=== PATIENT | male | born 1965 | race Caucasian/White ===

== ENCOUNTER 2019-11-14 09:00 | Day surgery (SDC) | payer MEDICARE ==
[2019-11-13 14:08] VITALS: BMI 28.5
[2019-11-14] MEDS ORDERED: Ketorolac Tromethamine 30 MG/ML VIAL ONE (09:29)
[2019-11-14] MEDS ORDERED: Acetaminophen 500 MG TAB ONE (09:29)
[2019-11-14 09:43] LABS: #Eosinphils 0.2 thou/uL (0.0-0.7); #Lymphocytes 2.9 thou/uL (1.20-3.40); #Neutrophils 10.7 thou/uL (1.40-6.50); %Basophils 0.3 % (0.0-1.0); %Eosinophils 1.3 % (0.0-10.0); %Lymphocytes 19.4 % (21.0-51.0); %Monocytes 6.7 % (0.0-10.0); %Neutrophils 72.3 % (42.0-75.0); Hemoglobin 14.1 g/dL (14.0-18.0); Mean Corpuscular HGB CONC 32.7 g/dL (32.0-36.0); Mean Corpuscular Hemoglobin 30.5 pg (27.0-31.0); Mean Corpuscular Volume 93.3 fL (78.0-98.0); Mean Platelet Volume 10.4 fL (7.4-10.4); Platelet Count 208 thou/uL (130-400); RBC Distribution Width 12.5 % (11.5-14.5); Red Blood Cell (RBC) Count 4.62 mill/uL (4.70-6.10); White Blood Cell (WBC) Count 14.7 thou/uL (4.8-10.8)
[2019-11-14 09:53] LABS: Anion Gap 15 mmol/L (10-20); BUN (Urea Nitrogen) 14 mg/dL (8.4-25.7); Calc. Creatinine Clearance 80 mL/min (70-130); Calcium 7.6 mg/dL (7.8-10.44); Carbon Dioxide 31 mmol/L (22-29); Chloride 97 mmol/L (98-107); Estimated GFR-MDRD 64; Glucose 103 mg/dL (70-105); Potassium 4.1 mmol/L (3.5-5.1); Sodium 139 mmol/L (136-145)
[2019-11-14] MEDS ORDERED: PROPOFOL 200 MG/20 ML VIAL ONE (10:03)
[2019-11-14] MEDS ORDERED: Dexamethasone 20 MG/5 ML VIAL ONE (10:03)
[2019-11-14] MEDS ORDERED: Rocuronium Bromide 10 MG/ML (10ML VIAL) ONE (10:03)
[2019-11-14] MEDS ORDERED: EPHEDRINE 25 MG/5 ML SYRINGE ONE (10:03)
[2019-11-14] MEDS ORDERED: Glycopyrrolate 0.2 MG/ML 5 ML SYRINGE ONE (10:03)
[2019-11-14] MEDS ORDERED: PHENYLEPHRINE-NS 100 MCG/ML 10 ML SYRINGE ONE (10:03)
[2019-11-14] MEDS ORDERED: Ondansetron PF 4 MG/2 ML Vial ONE (10:03)
[2019-11-14] MEDS ORDERED: Lidocaine 1% PF 5 ML VIAL ONE (10:03)
[2019-11-14] MEDS ORDERED: Bupivacaine PF 0.5% 30 ML VIAL ONE (12:34)
[2019-11-14] MEDS ORDERED: Lidocaine 1% w/Epinephrine 1:100K 20 ML VIAL ONE (12:34)
[2019-11-14] MEDS ORDERED: Bupivacaine 0.25% HCL 30 ML VIAL ONE (12:34)
[2019-11-14] MEDS ORDERED: Fentanyl 100 MCG/2 ML VIAL ONE (12:35)
[2019-11-14] MEDS ORDERED: Midazolam HCl 2 mg/2 ml Vial ONE (12:35)
[2019-11-14] MEDS ORDERED: Lidocaine 2% Jelly 5 ML TUBE ONE (12:35)
[2019-11-14] MEDS ORDERED: HYDROmorphone 0.5 MG/0.5 ML SYRINGE ONE (12:35)
--- NOTE | 2019-11-14 15:20 | EKG ---
Test Reason : PREOP Blood Pressure : / mmHG Vent. Rate : 093 BPM Atrial Rate : 093 BPM P-R Int : 136 ms QRS Dur : 096 ms QT Int : 380 ms P-R-T Axes : 023 075 018 degrees QTc Int : 472 ms Normal sinus rhythm Incomplete right bundle branch block Abnormal ECG No previous ECGs available Confirmed by KENISHA BURT ([id number]) on 11/14/2019 3:20:24 PM Referred By: AMANDA Confirmed By:KENISHA BURT
--- NOTE | 2019-11-14 16:42 | OP ---
DATE OF PROCEDURE: 11/14/2019 PREOPERATIVE DIAGNOSIS: Left inguinal hernia. POSTOPERATIVE DIAGNOSIS: Left inguinal hernia, pantaloon. PROCEDURE PERFORMED: Open repair of a very large pantaloon left inguinal hernia using extra-large mesh patch and plug. ANESTHESIA: General endotracheal. INDICATIONS: The patient is a 54-year-old white male. He has a large bulging hernia in his left groin. This is reducible and does not extend down at the scrotum. He is taken to the operative room at this time for repair. DESCRIPTION OF OPERATION: Informed consent was obtained. The patient was taken to the operating room, where general anesthesia obtained with the patient in supine position. Abdomen and left groin prepped with ChloraPrep and draped in sterile fashion. Local anesthetic was infiltrated using a mixture of 1% lidocaine with epinephrine and 0.25% Marcaine. Oblique left inguinal incision was created and dissection was carried through skin and subcutaneous tissue. I encountered the hernia sac before I dissected down to the fascia. This had abnormal anatomy, in that the external ring had been substantially dilated with the opening coming primarily along the shelving edge of the inguinal ligament. Thus, it initially appeared almost as though it was a femoral hernia, but as it was associated with the cord structures, it was clearly not. I eventually discerned the boundaries of the external ring and then infiltrated local anesthetic into the external oblique aponeurosis and opened it parallel to its fiber, so as to open the external ring. The cord structures were carefully dissected circumferentially and controlled with a Butler drain. I quickly discerned that this was a very large direct inguinal hernia. I began to dissect the cord structures away from the hernia sac. There proved to be more than one component to the hernia sac and it appeared that there was a substantial indirect component as well, lateral to the epigastric vessels. I dissected around the base of the hernia defect with electrocautery. During the course of incising along the inferior aspect, I injured the epigastric vessels. These were both ligated and divided at the inferior aspect. The hernia extended well lateral to the epigastric vessels. After the cord structures were dissected fully, an extra-large mesh plug was obtained and secured to the apex of the hernia sacs and the complex was then inverted into the preperitoneal space. I used a series of interrupted sutures of 2-0 Vicryl to secure the edges of the plug to the fascial structures circumferentially. On the lateral aspect, where there was no fascial structures, I simply imbricated the overlying conjoint tendon to the shelving edge of the inguinal ligament with a bite of the mesh plug. This provided appropriate closure of the internal ring. I placed two imbricating sutures of 2-0 Vicryl to close the muscle tissue over the plug. Mesh patch was obtained, trimmed to appropriate size, and placed within the floor of the inguinal canal. It was secured in place with several interrupted sutures of 2-0 Vicryl. The tails were placed lateral to the defect and secured with another suture. At this point, an On-Q pain pump was tunneled into the wound from superior and lateral. It was placed under the fascia and through some of the mesh medially. The fascia was then closed with a running suture of 3-0 Vicryl. The Edouard fascia was approximated with running suture of 3-0 Monocryl. Skin edges approximated with 4-0 Monocryl subcuticular. Dermabond was placed externally. A sterile occlusive dressing was applied over the external portion of the On-Q pain pump catheter. The catheter was attached to a bulb with 115 mL of 0.5% plain Marcaine. There were no complications. The patient tolerated the procedure well. He was taken to recovery room in stable condition. Job ID: [id number]
== END 2019-11-14 18:00 | disposition home or self-care (01) ==
LOC: SDC 09:00
PROVIDERS: ATTEND Specialist
PROC: 0YU60JZ Supplement Left Inguinal Region with Synthetic Substitute, Open Approach (ICD-10-PCS; principal; 2019-11-14)
DX: K40.90 Unilateral inguinal hernia, without obstruction or gangrene, not specified as recurrent (principal); K21.9 Gastro-esophageal reflux disease without esophagitis; E20.9 Hypoparathyroidism, unspecified; H54.8 Legal blindness, as defined in USA; Z79.899 Other long term (current) drug therapy; Z87.891 Personal history of nicotine dependence
CPT/HCPCS: 49505; 80048; 85025; 93005; A4306; C1781; 36415; 93010; J0690; J1100; J1170; J1885; J2001; J2250; J2405; J2704; J3010; S0020